=== PATIENT | female | born 1965 | race African-American/Black ===

== ENCOUNTER 2019-05-10 09:07 | Inpatient (IN) | payer OTHER ==
[~2019-05-10] VITALS: Ht 167.6 cm; Wt 110.7 kg
--- NOTE | ~2019-05-10 | O ---
[place] [address] OPERATIVE REPORT Name: KEN VALENZUELA Room #: 450-P ADM IN M.R.#: [id number] Admission: 05/10/19 ������������������ Attend Phys: Jose David Smith MD Discharge: ������������������ Date of : 63 Report #: [id number] THIS REPORT FOR: //name// CC: Jose David Mtz DATE OF SERVICE: 05/11/2019 PREOPERATIVE DIAGNOSIS: Acute cholecystitis. POSTOPERATIVE DIAGNOSIS: Acute cholecystitis. PROCEDURE: Laparoscopic cholecystectomy. SURGEON: Ulisses Gtz MD. ANESTHESIA: General. ESTIMATED BLOOD LOSS: Minimal. SPECIMENS: Gallbladder. DESCRIPTION OF PROCEDURE: After informed consent was obtained, the patient was brought to the operating room and placed supine. SCDs were placed and working, preoperative antibiotics were administered, general anesthesia was induced. The abdomen was prepped and draped in the usual sterile fashion. A 10 mm incision was made above the umbilicus. Fascia was incised and a trocar was placed. Pneumoperitoneum was established. Three right upper quadrant 5 mm ports were placed. Gallbladder was grasped at the fundus and retracted cephalad. Infundibulum was grasped and retracted laterally. I dissected out the cystic duct and the cystic artery. Cystic duct and artery were clipped and ligated, leaving a clip and a PDS Endoloop on the remaining duct. A clip was left on the remaining artery. Gallbladder was then taken off the liver bed with electrocautery. It was placed into an Endopouch and removed. Fascia was then closed with a ltydle-bj-eroyc 0 Vicryl. Skin was closed with 4-0 Monocryl. Incisions were sealed with Dermabond. COMPLICATIONS: None. DISPOSITION: The patient was taken to recovery in satisfactory condition. ��������������������������������������������� ���������������������������������������� By: ��������������������������������������������� 0850 0917 Ulisses Gtz MD /nt
[2019-05-10 09:55] LABS: ABSOLUTE NEUTROPHILS 6.8 thou/uL (1.4-8.2); BASOPHILS 0.4 % (0.0-2.0); EOSINOPHILS 0.5 % (0.0-3.0); HEMATOCRIT 42.2 % (37.0-47.0); HEMOGLOBIN 14.4 gm/dL (12.0-15.0); LYMPHOCYTES 27.6 % (24.0-44.0); MCHC 34.1 g/dL (28.0-37.0); MONOCYTES 4.6 % (1.0-8.0); PLATELET COUNT 262 thou/uL (150-400); POLYS 66.9 % (36.0-66.0); RBC 4.64 mil/uL (4.20-5.00); RDW 13.1 % (10.5-14.5); WBC 10.2 thou/uL (4.0-11.0)
[2019-05-10 10:05] LABS: CALCIUM 8.9 mg/dL (8.5-10.1); CREATININE 0.8 mg/dL (0.6-1.0); POTASSIUM 3.7 mmol/L (3.5-5.1)
[2019-05-10 10:10] LABS: ALBUMIN 3.9 g/dL (3.4-5.0); TOTAL BILIRUBIN 0.4 mg/dL (<0.1-1.0); TOTAL PROTEIN 7.8 g/dL (6.4-8.2)
[2019-05-10 10:11] LABS: URINE BILIRUBIN NEGATIVE (Negative); URINE BLOOD 2+ (Negative); URINE CLARITY CLEAR; URINE COLOR YELLOW; URINE GLUCOSE-RANDOM* NEGATIVE (Negative); URINE KETONES NEGATIVE (Negative); URINE LEUKOCYTES NEGATIVE (Negative); URINE NITRITE NEGATIVE (Negative); URINE PROTEIN (DIPSTICK) NEGATIVE (Negative); URINE UROBILINOGEN 0.2 E.U./dl (0.2-1.0)
[2019-05-10 10:20] LABS: CASTS None Seen /LPF (None Seen); SQUAMOUS 4-10 Moderate /LPF (0-3); URINE RBC 3-10 Few /HPF (0-2); URINE WBC 0-5 Rare /HPF (0-5)
[2019-05-10 10:21] LABS: BACTERIA None Seen /HPF (None Seen); CRYSTALS None Seen /LPF (None Seen)
--- NOTE | 2019-05-10 12:17 | EKG ---
[address] [place] [address] ELECTROCARDIOGRAM REPORT Name: BIANCAKEN Room #: REG Juarez#: [id number] ������������������ Admission: 05/10/19 ������������������ Attend Phys: Discharge: ������������������ Date of : 63 Report #: [id number] ����������������������������������������������������������������� [id number] THIS REPORT FOR: //name// [facility] ED Test Date: 2019-05-10 Test Time: 11:40:38 Pat Name: KEN VALENZUELA Department: Room: Gender: F Painter Rough: magdiel : 1965 Requested By: Tyler Nicholson Order Number: [id number] MD: Dell Mcbride Measurements Intervals [place] Rate: 54 P: 52 [place]: 136 QRS: 56 QRSD: 91 T: 62 QT: 447 QTc: 424 Interpretive Statements Sinus rhythm No previous ECG available for comparison Electronically Signed On 05-10-2019 12:17:37 CDT by Dell Mcbride [email or web address] ��������������������������������������������� <ELECTRONICALLY SIGNED> ���������������������������������������� By: Dell Mcbride MD ��������������������������������������������� 05/10/19 1217 1140 1140 Dell Mcbride MD /EPI
[2019-05-10 13:25] VITALS: BP 146/74
[2019-05-10 13:54] VITALS: BP 146/74
--- NOTE | 2019-05-10 16:24 | NUR ---
Received pt from the ER currently NPO, complains of pain (3) on her left lower abdomen, pain medication given with partial relief noted. IV abx and fluids started. Consult to surgery called. POC followed
[2019-05-10 18:20] VITALS: BP 144/70
[2019-05-10 19:22] VITALS: BP 154/75
[2019-05-11] VITALS (7 sets, daily range): BP systolic 149–167; BP diastolic 46–119
--- NOTE | 2019-05-11 04:08 | NUR ---
ASSUMED CARE AROUND 1900. AXOX4. AWAITING LAP JAMES IN AM. KEPT NPO. NO C/O SEVERE PAIN AT THIS TIME. DECLINED PAIN MED. NO S/S ACUTE DISTRESS NOTED OR REPORTED AT THIS TIME. WILL CONT TO MONITOR FOR ANY CHANGES IN CONDITION.
[2019-05-11 05:50] LABS: ABSOLUTE NEUTROPHILS 2.8 thou/uL (1.4-8.2); BASOPHILS 0.5 % (0.0-2.0); EOSINOPHILS 0.9 % (0.0-3.0); HEMATOCRIT 37.6 % (37.0-47.0); HEMOGLOBIN 12.7 gm/dL (12.0-15.0); LYMPHOCYTES 43.7 % (24.0-44.0); MCHC 33.7 g/dL (28.0-37.0); MCV 91.9 fL (80.0-100.0); MONOCYTES 6.6 % (1.0-8.0); PLATELET COUNT 217 thou/uL (150-400); POLYS 48.3 % (36.0-66.0); RBC 4.09 mil/uL (4.20-5.00); RDW 13.1 % (10.5-14.5); WBC 5.9 thou/uL (4.0-11.0)
[2019-05-11 06:05] LABS: CREATININE 0.8 mg/dL (0.6-1.0); POTASSIUM 3.7 mmol/L (3.5-5.1)
--- NOTE | 2019-05-11 12:31 | NUR ---
Assumed pt care this am but was already in the OR upon shift change. Pt came back on the floor at 9:35 am vs stable. 4 lap sites with dermabond intact. Pain verbalized and managed with mediations. Tolerating clear liquids at the moment will advance as tolerated. Monitoring for signs of distress.
--- NOTE | 2019-05-11 15:20 | NUR ---
PT ADMITTED RELATED TO CHOLEYLITHIASIS. CM REVIEWED CHART AND SPOKE WITH CARE TEAM. CM MET WITH PT AT BEDSIDE THIS DAY. PT IS A&O X4. CM ROLE INTRODUCED. PT INDICATED SHE LIVES IN A HOUSE WITH HER DTR WITH A FEW STEPS TO ENTER AND NO STEPS INSIDE. 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 PT INDICATED NO DME OR HH HX. PT INDICATED SHE PLANS TO GO HOME ONCE MEDICALLY STABLE. CM TO FOLLOW INDICATED SHOULD ANY DC NEEDS ARISE.
[2019-05-12 00:36] VITALS: BP 144/70
--- NOTE | 2019-05-12 01:37 | NUR ---
PATIENT AOX4 MAKES NEEDS KNOWN. PATIENT DENIED PAIN OR DISCOMFORT THIS SHIFT. FOUR LAP SITE IS C/D/I. PATIENT REFUSED SCD. PATIENT IS AMBULATING IN THE ROOM WITH STEADY GAITS. PATIENT IN BED ASLEEP AT THIS TIME BREATHING REGULAR AND UNLABOURED.
[2019-05-12 04:10] VITALS: BP 130/63
[2019-05-12 07:40] VITALS: BP 147/65
[2019-05-12] MEDS ORDERED: TRAMADOL 50 MG50 MG PO (10:08)
[2019-05-12 10:34] VITALS: BP 147/65
--- NOTE | 2019-05-12 11:03 | NUR ---
Assumed pt care this am, pt denies any pain or discomfort. 4 lap sites intact and free of infection. Pt is independent and is able to ambulate with a steady gait with no aids. Able to urinate with no issues and is passing gas. No sings of distress have been noted, regular diet is well tolerated. POC followed. DC orders have been given, instruction and prescriptions given to the pt and the daughter, IV removed.
--- NOTE | 2019-05-12 12:00 | NUR ---
PHYSICIAN INDICATED THAT PT IS MEDCIALLY STABLE TO DC HOME WITH NO NEEDS TODAY. NO OTHER CM INTERVENTION INDICATED. CASE CLOSED.
--- NOTE | 2019-05-13 11:09 | PATH ---
[facility] [address] [place] [address] PATHOLOGY RPT PROCEDURE Name: KEN VALENZUELA Room #: 450-P [facility] IN M.R.#: [id number] ������������������ Admission: 05/10/19 ������������������ Date of : 63 Discharge: 05/12/19 Report #: [id number] Path Case #: [id number] [facility] Accession Number: [id number] . 01 Material submitted: . gallbladder - GALLBLADDER . 01 Clinical history: . Cholecystitis and cholelithiasis . 02 Diagnosis: Gallbladder, cholecystectomy: - Mild chronic cholecystitis. - Cholesterolosis. - Cholelithiasis. (I[facility]:cody; 05/12/2019) QMS/05/12/2019 . 02 Electronically signed: . Kristine Vazquez MD, Pathologist NPI- [id number] . 01 Gross description: . The specimen is received in formalin, labeled "Ken Valenzuela, gallbladder", is intact gallbladder measuring 12.0 cm in length and 3.0 cm in maximum diameter with a hartman-pink serosa, diffusely covered by hemorrhagic petechiae. The cystic duct region is a dilated. The gallbladder lumen contains hartman-yellow, viscous bile and two yellow-brown calculi measuring 1.7 x 1.3 x 1.1 cm and 1.0 x 1.0 x 0.8 cm. The mucosa is yellow-hartman, possible cholesterolosis. The wall is 0.2 cm in average thickness. Representatively submitted in A1. ([facility]; 05/11/2019) SHS/SHS . 02 Pathologist provided ICD-10: K80.10, K82.4 . 02 CPT . 195547 Specimen Comment: A courtesy copy of this report has been sent to Specimen Comment: [phone], , . Specimen Comment: Report sent to DR MORRIS,DR DELAROSA / DR WOOD Performed at: [address] [id number] MD Austin Garcia MD Phone: [phone] Performed at: 02 [facility] [address] [place] [address] PATHOLOGY RPT PROCEDURE Name: KEN VALENZUELA Room #: 450-P DIS IN M.R.#: [id number] ������������������ Admission: 05/10/19 ������������������ Date of : 63 Discharge: 05/12/19 Report #: [id number] Path Case #: [id number] [address], [place] [id number] MD Kristine Vazquez MD Phone: [phone]
== END 2019-05-12 12:37 | disposition home or self-care (01) | DRG 419 ==
LOC: ER 09:07 → 4W 12:26 → EROBS 12:26 → 4W 13:54 → ENTRNSPT 05-12 10:57 → EDTRNSPTSTS 05-12 11:05 → 4W 05-12 12:37
PROVIDERS: Emergency Medicine; Nurse Practitioner; ADMIT Internal Medicine
PROC: 0FT44ZZ Resection of Gallbladder, Percutaneous Endoscopic Approach (ICD-10-PCS; principal; 2019-05-11)
DX: K80.00 Calculus of gallbladder with acute cholecystitis without obstruction (principal); K21.9 Gastro-esophageal reflux disease without esophagitis; E66.9 Obesity, unspecified; D18.00 Hemangioma unspecified site; D25.9 Leiomyoma of uterus, unspecified; K82.8 Other specified diseases of gallbladder; D18.03 Hemangioma of intra-abdominal structures; Z88.6 Allergy status to analgesic agent; Z68.39 Body mass index [BMI] 39.0-39.9, adult; Z88.8 Allergy status to other drugs, medicaments and biological substances
CPT/HCPCS: 10040; 50010; 50101; 50411; 50555; 50558; 51297; 51489; 52265; 52266; 53307; 53312; 53314; 54118; 55245; 56462; 56525; 56526; 62110; 62900; 70005